=== PATIENT | female | born 1995 | race Caucasian/White ===

== ENCOUNTER 2019-06-09 10:14 | Outpatient (CLI) | payer OTHER ==
[~2019-06-09] VITALS: Ht 154.9 cm; Wt 81.3 kg
[~2019-06-09 10:14] MED LIST: PREN1TAB60 PO
[2019-06-09 10:39] VITALS: BP 120/78
[2019-06-09] MEDS ORDERED: ONDANSETRON 2MG/ML, 2ML IVPush PRN (11:00)
[2019-06-09] MEDS ORDERED: D5%-LACTATED RINGERS 1,000 ML IV SCH (11:00)
[2019-06-09 12:13] LABS: MICROSCOPIC INDICATED
== END 2019-06-09 13:40 | disposition home or self-care (01) ==
LOC: LDOP 10:14
PROVIDERS: ATTEND Obstetrics & Gynecology
DX: O26.893 Other specified pregnancy related conditions, third trimester (principal); R10.9 Unspecified abdominal pain; O21.2 Late vomiting of pregnancy; Z3A.39 39 weeks gestation of pregnancy
CPT/HCPCS: 59025; 81001; 96360; 96361; 99211; J7121; G0463

== ENCOUNTER 2019-06-10 19:13 | Outpatient (CLI) | payer OTHER ==
[~2019-06-10] VITALS: Ht 154.9 cm; Wt 81.4 kg
[2019-06-10] MEDS ORDERED: MEPERIDINE/PF 50 MG/ML ONE (20:40)
[2019-06-10] MEDS ORDERED: PROMETHAZINE 25 MG/ML, 1ML ONE (20:44)
[2019-06-10] MEDS ORDERED: MEPERIDINE/PF 25MG/0.5ML IM ONE (21:00)
[2019-06-10] MEDS ORDERED: PROMETHAZINE 25 MG/ML, 1ML IM ONE (21:00)
== END 2019-06-10 20:54 | disposition home or self-care (01) ==
LOC: LDOP 19:13
PROVIDERS: ATTEND Obstetrics & Gynecology
DX: O62.9 Abnormality of forces of labor, unspecified (principal); Z3A.39 39 weeks gestation of pregnancy
CPT/HCPCS: 59025; 96372; 99211; J2175; J2550; G0463